=== PATIENT | female | born 2000 | race Caucasian/White ===

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

== ENCOUNTER 2022-02-06 22:14 | Emergency (ER) | payer OTHER ==
[~2022-02-06] VITALS: Ht 165.1 cm; Wt 68.0 kg
== END 2022-02-07 00:43 | disposition home or self-care (01) ==
LOC: ER 22:14
DX: L72.0 Epidermal cyst (principal)